=== PATIENT | female | born 1945 | race Caucasian/White ===

== ENCOUNTER → 2023-04-30 | Outpatient (CLI) | payer MEDICARE ==
[2023-04-30 20:22] LABS: T4, Free (Free Thyroxine) 1.14 ng/dL (0.80-1.80)
[2023-04-30 21:17] LABS: Basophils # (A) 0.04 X 10*3/uL (0.00-0.10); Basophils % (A) 0.5 %; Eosinophils # (A) 0.18 X 10*3/uL (0.04-0.35); HCT 38.6 % (37.2-46.3); HGB 12.6 d/dL (12.0-15.0); Lymphocytes # (A) 2.51 X 10*3/uL (0.90-5.00); Lymphocytes % (A) 28.4 %; MCH 29.6 pg (27.0-32.0); MCHC 32.6 d/dL (32.0-37.0); MCV 90.8 FL (80.0-97.0); Mean Platelet Volume 10.4 FL (9.5-12.2); Monocytes # (A) 0.81 X 10*3/uL (0.20-1.00); Monocytes % (A) 9.2 %; NRBC Per 100 WBC 0 X 10*3/uL (0.00-0.01); Neutrophils # (A) 5.27 X 10*3/uL (1.80-7.70); Neutrophils % (A) 59.6 %; Platelet Count 298 X 10*3/uL (140-440); RBC 4.25 X 10*6/uL (4.10-5.20); RDW 13.6 % (11.5-14.5); WBC 8.84 X 10*3/uL (4.50-10.00)
[2023-04-30 22:07] LABS: Thyroid Peroxidase Antibodies <9.0 U/mL (0.0-33.0)
[2023-05-01 01:18] LABS: Egg White IgE <0.10 kU/L; Walnut IgE (Food) <0.10 kU/L
== END | disposition home or self-care (01) ==
LOC: LABWHC1 14:52
PROVIDERS: ATTEND Allergy & Immunology
DX: L50.9 Urticaria, unspecified (principal); K52.9 Noninfective gastroenteritis and colitis, unspecified; K21.9 Gastro-esophageal reflux disease without esophagitis; L65.9 Nonscarring hair loss, unspecified
CPT/HCPCS: 36415; 82785; 83520; 84439; 84443; 85025; 86003; 86376; 86800

== ENCOUNTER 2024-03-01 06:46 | Day surgery (SDC) | payer MEDICARE ==
[2024-02-29 10:20] VITALS: BMI 25.0
[2024-03-01 07:11] VITALS: TEMP 98.2
[2024-03-01] MEDS: LACTATED RINGERS 1,000 ML IV SCH (07:16)
[2024-03-01] MEDS: IV FLUID CONTINUATION 1,000 ML IV ONE (07:17)
[2024-03-01] MEDS ORDERED: LIDOCAINE 1% INJ 10MG/ML (20 ML MDV) ONE (07:37)
[2024-03-01] MEDS ORDERED: PROPOFOL 10 MG/ML 20 ML VIAL IV ONE (07:37)
--- NOTE | 2024-03-01 07:58 | P.PCN ---
Date of Procedure: 03/01/24 Procedure(s) Performed: Brief history: Patient is a pleasant 78-year-old white female scheduled for an elective upper endoscopy as well as colonoscopy as a part of evaluation of GERD/screening for colon cancer Procedure performed: Esophagogastroduodenoscopy with biopsy Colonoscopy with snare polypectomy Preoperative diagnosis: GERD Screening for colon cancer Anesthesia: MAC Procedure: After informed consent was obtained from the patient was brought into the endoscopy unit and IV sedation was administered by anesthesia under continuous monitoring. Initially upper endoscopy was done. The Olympus GF 160 video endoscope was inserted inserted into the mouth and esophagus intubated without any difficulty and was gradually advanced into the stomach and duodenum and carefully examined. The bulb and second part of the duodenum appeared normal. The scope was then withdrawn into the stomach adequately insufflated with air and upon careful examination the antrum and mild gastritis and biopsies were done from this area. Mucosa of the body body, cardia and fundus appeared normal. The scope was then withdrawn into the esophagus. The GE junction was located at 40 cm to the incisors. It appeared regular with no erythema erosions or ulcerations. Rest of the esophagus appeared normal. Patient tolerated the procedure well. At this time the patient continued to remain sedation. Initial digital rectal examination was normal. Olympus CF 160 video colonoscope was then inserted into the rectum and gradually advanced to the cecum without any difficulty. Careful examination was performed as the scope was gradually being withdrawn. The prep was excellent. The cecum, ascending colon, appeared normal. The transverse colon there was a 10 mm polyp removed by snare polypectomy. Transverse colon, descending colon, sigmoid colon and rectum appeared normal. Rectum there was a 1 cm flat polyp removed by snare polypectomy. Retroflexion was performed in the rectum and no lesions were noted. Patient tolerated the procedure well. Impression: 1. Upper endoscopy revealed mild antral gastritis but no evidence of esophagitis or peptic ulcer disease 2. Colonoscopy revealed 1 cm transverse colon polyp and 1 cm proximal rectal polyp status post snare polypectomy Recommendations: Findings of this examination were discussed with the patient as well as her family. She was advised to follow-up the biopsy results. The biopsy reveals adenoma, recommended repeat colonoscopy in 3 years.
[2024-03-01 08:21] VITALS: RESP 16
[2024-03-01] MEDS: KETOROLAC 15 MG/ML 1 ML VIAL IVP STA (08:36)
[2024-03-01 08:40] VITALS: BP 153/78; PULSE 74
== END 2024-03-01 09:24 | disposition home or self-care (01) ==
LOC: ORWHC2ENDO 06:46
PROVIDERS: ATTEND Internal Medicine Gastroenterology
DX: Z12.11 Encounter for screening for malignant neoplasm of colon (principal); D12.3 Benign neoplasm of transverse colon; K29.50 Unspecified chronic gastritis without bleeding; K31.9 Disease of stomach and duodenum, unspecified; K62.1 Rectal polyp; K21.9 Gastro-esophageal reflux disease without esophagitis; F12.90 Cannabis use, unspecified, uncomplicated; Z80.0 Family history of malignant neoplasm of digestive organs; Z87.891 Personal history of nicotine dependence; Z79.899 Other long term (current) drug therapy; Z91.040 Latex allergy status
CPT/HCPCS: 88305; 45385; 43239; J2001; J1885; J2704

== ENCOUNTER → 2025-04-17 | Outpatient (CLI) | payer MEDICARE ==
--- NOTE | 2025-04-17 09:19 | XR ---
EXAMINATION TYPE: XR abdomen 1V DATE OF EXAM: 04/17/2025 COMPARISON: NONE HISTORY: Abdominal pain TECHNIQUE: Single supine view of the abdomen is obtained FINDINGS: Small bowel demonstrates gas-filled nondilated small bowel. Gas and fecal material is seen in non-distended colon. No convincing evidence for pneumoperitoneum. Right-sided pelvic phleboliths. The lung bases are clear. The osseous structures are intact. 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 Two-level dege nerative changes of the visualized lumbar spine. IMPRESSION: Overall nonobstructive bowel gas pattern at this time. [facility], , 04/17/2025 9:16 AM
[2025-04-17 15:24] LABS: Basophils # (A) 0.05 X 10*3/uL (0.00-0.10); Basophils % (A) 0.6 %; Eosinophils # (A) 0.46 X 10*3/uL (0.04-0.35); Eosinophils % (A) 5.9 %; HCT 42.1 % (37.2-46.3); HGB 13.6 g/dL (12.0-15.0); Immature Grans, Automated 0.30 %; Lymphocytes # (A) 2.10 X 10*3/uL (0.90-5.00); Lymphocytes % (A) 26.7 %; MCH 30.4 pg (27.0-32.0); MCHC 32.3 g/dL (32.0-37.0); MCV 94.0 FL (80.0-97.0); Monocytes # (A) 0.69 X 10*3/uL (0.20-1.00); Monocytes % (A) 8.8 %; NRBC Per 100 WBC 0 X 10*3/uL (0.00-0.01); Neutrophils # (A) 4.54 X 10*3/uL (1.80-7.70); Neutrophils % (A) 57.7 %; Platelet Count 285 X 10*3/uL (140-440); RBC 4.48 X 10*6/uL (4.10-5.20); RDW 13.6 % (11.5-14.5); WBC 7.86 X 10*3/uL (4.50-10.00)
[2025-04-17 15:33] LABS: ALT 12 U/L (8-44); AST 21 U/L (13-35); Albumin 4.3 g/dL (3.8-4.9); Albumin/Globulin Ratio 2.05 Ratio (1.60-3.17); Alkaline Phosphatase 87 U/L (41-126); Anion Gap 9.40 mmol/L (4.00-12.00); BUN/Creat Ratio 18.88 Ratio (12.00-20.00); Blood Urea Nitrogen 15.1 mg/dL (9.0-27.0); Calcium 9.3 mg/dL (8.7-10.3); Carbon Dioxide 27.6 mmol/L (21.6-31.8); Chloride 107 mmol/L (96-109); Globulin 2.1 g/dL (1.6-3.3); Glucose 79 mg/dL (70-110); Potassium 4.6 mmol/L (3.5-5.5); Sodium 144 mmol/L (135-145); Total Protein 6.4 g/dL (6.2-8.2)
== END | disposition home or self-care (01) ==
LOC: LABWHC1 08:37
PROVIDERS: ATTEND Nurse Practitioner Family
DX: R10.9 Unspecified abdominal pain (principal)
CPT/HCPCS: 36415; 74018; 80053; 85025; 85652; 86140